=== PATIENT | female | born 1950 | race Caucasian/White ===

== ENCOUNTER → 2023-06-22 06:27 | Day surgery (SDC) | payer MEDICARE, OTHER, SELFPAY | LOC: GI 06:27 | PROVIDERS: ATTENDING PHYSICIAN Internal Medicine Gastroenterology | DX: Z12.11 Encounter for screening for malignant neoplasm of colon (principal); R19.5 Other fecal abnormalities; K64.0 First degree hemorrhoids; K55.20 Angiodysplasia of colon without hemorrhage; K63.89 Other specified diseases of intestine; D12.0 Benign neoplasm of cecum; D12.3 Benign neoplasm of transverse colon | CPT/HCPCS: 45385; 45380; 88305 ==

== ENCOUNTER → 2023-07-26 06:20 | Day surgery (SDC) | payer MEDICARE, OTHER, SELFPAY | LOC: GI 06:20 | PROVIDERS: ATTENDING PHYSICIAN Internal Medicine Gastroenterology; FAMILY PHYSICIAN Family Medicine | DX: R10.84 Generalized abdominal pain (principal); R14.0 Abdominal distension (gaseous); K22.2 Esophageal obstruction; K44.9 Diaphragmatic hernia without obstruction or gangrene; K31.7 Polyp of stomach and duodenum; R13.10 Dysphagia, unspecified; K29.50 Unspecified chronic gastritis without bleeding; K31.89 Other diseases of stomach and duodenum; K20.80 Other esophagitis without bleeding | CPT/HCPCS: 43239; 88305; 88312; 88342 ==

== ENCOUNTER → 2023-07-28 07:33 | Outpatient (REF) | payer MEDICARE, OTHER, SELFPAY | LOC: RAD 07:33 | PROVIDERS: ATTENDING PHYSICIAN Internal Medicine Gastroenterology; FAMILY PHYSICIAN Family Medicine | DX: K31.84 Gastroparesis (principal) | CPT/HCPCS: 78264; A9541 ==

== ENCOUNTER 2023-08-22 06:06 | Inpatient (IN) | payer MEDICARE, OTHER, SELFPAY ==
[2023-08-22] VITALS (9 sets, daily range): BP systolic 114–168; BP diastolic 63–113; PULSE 76; BMI 26.1; BMI 24.9
[2023-08-22] MEDS: ZOFRAN 4 MG IV (01:51)
--- NOTE | 2023-08-22 02:00 | EDRN ---
Patients daughter has come out of the room several times about the patients pain, myself and charge nurse have explained to the daughter several times that the doctor is in with a critical patient and we understand shes in a lot of pain and her pain
is important to us and the providers are working as quickly as they can to see her, ice applied and given Zofran for nausea per doctor Edson request and informed that the DrSolitario will be in as soon as she can and is aware of the patients pain level.
--- NOTE | 2023-08-22 02:17 | ED.GENMED ---
History of Present Illness
<ERIC Vicente - Last Filed: 08/22/23 03:22>
General
Chief Complaint: Musculo-Skeletal Complaint
Source: patient
Time Seen by Provider: 08/22/23 02:17
Travel History
Have you had any contact with someone who has COVID-19?: No
Do you have any symptoms of coronavirus? Fever > 100 degrees, chills, cough, shortness of breath, sore throat, loss of taste or smell, muscle aches, or headache?: No
History of Present Illness
History of Present Illness:
This is a 73 yo female PMH asthma, HTN, AFIB with pacemaker, HTN presenting for R knee pain x 1 day. She states she felt acute pain and a 'weird sensation' while bending down to pick something off the floor on tuesday. She states the pain is 10/10,
radiating up part of her thigh. She went to urgent care shortly after where she had a normal XRAY and was given tramadol and ibuprofen. States tramodol helped the pain briefly, but the pain and swelling has been getting worse over the day. She
denies any recent injury.
Past History
<ERIC Vicente - Last Filed: 08/22/23 03:22>
Past History
ED Past Medical History: Arrthythmia (afib) and Asthma
ED Past Surgical History: Cardiac (ablation)
Social History
Tobacco: Non-smoker
Alcohol: None
Drug: None
Personal:
Living: with family
Employment: Not employed
Review of Systems
<ERIC Vicente - Last Filed: 08/22/23 03:22>
Review of Systems
Allergies reviewed?: Yes
Constitutional: Reports no symptoms
Respiratory: Reports no symptoms
Cardiac: Reports no symptoms
Musculoskeletal: Reports joint pain and joint swelling
Skin: Reports no symptoms
Phy Exam
<ERIC Vicente - Last Filed: 08/22/23 03:22>
General Physical Exam
General Presentation: moderate distress
General age: appears stated age
General Mental: alert
Cardiovascular Exam
Cardiovascular Exam: regular rate/rhythm and normal peripheral pulses
Pulmonary Exam
Pulmonary Exam: lungs clear
Musculoskeletal Exam
Musculoskeletal Exam: joint swelling (R knee effusion) and other (pain with R leg flexion, R foot flexion/extension)
Course
<ERIC Vicente - Last Filed: 08/22/23 03:22>
Orders/Labs/Results
Orders:
Orders
08/22/23 01:10
Ondansetron Injectable [Zofran] 4 mg .ROUTE .STK-MED ONE
08/22/23 01:51
Ondansetron Injectable [Zofran] 4 mg IV NOW STA
08/22/23 02:52
HYDROmorphone [Dilaudid] 0.5 mg .ROUTE .STK-MED ONE
HYDROmorphone [Dilaudid] 0.5 mg IV NOW STA
08/22/23 03:00
Ondansetron Injectable [Zofran] 4 mg .ROUTE .STK-MED ONE
08/22/23 03:24
HYDROmorphone [Dilaudid] 0.5 mg IV NOW STA
08/22/23 04:32
Lidocaine [Lidocaine 4% Patch] 2 patch TOPICAL NOW STA
08/22/23 05:21
BMP [Basic Metabolic Panel] Urgent
CBC/With Diff [Complete Blood Count/With Diff] Urgent
08/22/23 05:22
PT/INR [Prothrombin Time] Urgent
PTT Urgent
Vital Signs
Initial and Last Documented VS:
Initial Vital Signs
Temp Pulse Resp BP Pulse Ox
98.0 F 78 16 141/86 99
08/22/23 00:53 08/22/23 00:53 08/22/23 00:53 08/22/23 00:53 08/22/23 00:53
Last Documented Vital Signs
Temp Pulse Resp BP Pulse Ox
98.0 F 78 16 141/86 99
08/22/23 00:53 08/22/23 00:53 08/22/23 00:53 08/22/23 00:53 08/22/23 00:53
<Gisel Gomez DO - Last Filed: 08/22/23 05:53>
Orders/Labs/Results
Orders:
Orders
08/22/23 01:10
Ondansetron Injectable [Zofran] 4 mg .ROUTE .STK-MED ONE
08/22/23 01:51
Ondansetron Injectable [Zofran] 4 mg IV NOW STA
08/22/23 02:52
HYDROmorphone [Dilaudid] 0.5 mg .ROUTE .STK-MED ONE
HYDROmorphone [Dilaudid] 0.5 mg IV NOW STA
08/22/23 03:00
Ondansetron Injectable [Zofran] 4 mg .ROUTE .STK-MED ONE
08/22/23 03:24
HYDROmorphone [Dilaudid] 0.5 mg IV NOW STA
08/22/23 04:32
Lidocaine [Lidocaine 4% Patch] 2 patch TOPICAL NOW STA
08/22/23 05:21
BMP [Basic Metabolic Panel] Urgent
CBC/With Diff [Complete Blood Count/With Diff] Urgent
08/22/23 05:22
PT/INR [Prothrombin Time] Urgent
PTT Urgent
Vital Signs
Initial and Last Documented VS:
Initial Vital Signs
Temp Pulse Resp BP Pulse Ox
98.0 F 78 16 141/86 99
08/22/23 00:53 08/22/23 00:53 08/22/23 00:53 08/22/23 00:53 08/22/23 00:53
Last Documented Vital Signs
Temp Pulse Resp BP Pulse Ox
98.0 F 78 16 141/86 99
08/22/23 00:53 08/22/23 00:53 08/22/23 00:53 08/22/23 00:53 08/22/23 00:53
<ERIC Vicente - Last Filed: 08/22/23 03:22>
MDM/Problems Addressed
Differential Diagnosis Includes:
Traumatic knee injury
-ice, dilaudid
-patient instructed to f/u with orthopedics
<ERIC Vicente - Last Filed: 08/22/23 03:22>
*Critical Care Note
Total Time (30-74mins, 75-104mins- exclusive of procedures): Not Applicable
<Gisel Gomez DO - Last Filed: 08/22/23 05:53>
*Radiology
Radiology exam reviewed: radiology read reviewed (Knee x-ray from August 19-performed at urgent care. Unremarkable save for prepatellar effusion)
*Pulse Oximetry
Patient hypoxic: no
ED Attending Note
<ERIC Vicente - Last Filed: 08/22/23 03:22>
-
Portions of this chart may have been created with voice recognition software.� Occasional wrong word or��sound alike� substitutions may have occurred due to the inherent limitations of voice recognition software.
<Gisel Gomez DO - Last Filed: 08/22/23 05:53>
ED Attending Note
Patient seen and examined by attending physician: Yes
I performed the substantive portion of visit, reviewed & personally made and approve the management plan that is documented in note by myself or TOBI.: Yes
I performed a history and physical exam of patient and discussed management with resident, I reviewed resident's note and agree with documented findings and plan of care.: Yes
ED Attending Note:
73-year-old woman with history of paroxysmal atrial fibrillation maintained on Eliquis, history of hypertension, hyperlipidemia, anxiety, hiatal hernia, chronic constipation who presents with abrupt onset of right knee pain after bending over
Tuesday morning, August 19. She complained of immediate mild to moderate pain with mild stiffness and presented to urgent care Tuesday afternoon and had right knee x-ray showing moderate suprapatellar joint effusion but otherwise unremarkable.
She was provided a prescription for tramadol for pain and has been taking ibuprofen 600 mg intermittently with last dose at 9:30 PM.
She presents with progressive pain and swelling about her right knee, now severe, unrelieved with tramadol as well as ibuprofen. She has been unable to bear weight and complains of nausea, dry heaves which she believes is related to the knee pain.
No prior history of knee injuries. The pain has been radiating up her thigh and intermittently down her right lower leg. She denies weakness nor numbness.
GENERAL: 73-year-old woman appears her stated age, awake and alert, appears in mild to moderate distress related to right knee pain. Daughter is accompanying.
EYE: anicteric
NECK: Supple, nontender, no meningismus, no significant adenopathy.
ENT: oral mucosa is moist. No rhinorrhea.
CARDIAC: Regular rate and rhythm. no murmur.
LUNGS: Clear breath sounds bilaterally, no acute respiratory distress, no wheezes/rales/rhonchi
ABDOMEN: Soft, nondistended, without focal tenderness
NEUROLOGICAL: Alert and oriented x3, no focal neuro deficits. Motor strength is 5/5 bilaterally. Gross sensation is intact.
SKIN: Warm and dry, normal color, skin intact. No rash.
MUSCULOSKELETAL: There is exquisite tenderness about the right knee with marked global effusion about the right knee. Right knee is held preferentially slightly flexed elevated on a pillow. Markedly limited range of motion of right knee related to
pain. There is no crepitus, no gross deformity. There is no tenderness nor soft tissue swelling to the thigh nor lower leg. Peripheral pulses are full and equal bilaterally. There is full ankle range of motion without difficulty nor pain.
PSYCH: Mildly anxious related to pain.
History and exam concerning for acute internal derangement of right knee with acute traumatic effusion with significant right knee pain. There is no evidence of compartment syndrome nor neurovascular compromise.
Patient chronically maintained on Eliquis thus NSAIDs are to be avoided.
She has been given IV Zofran for nausea and will trial IV Dilaudid for pain along with continuing ice.
Imaging from yesterday reviewed showing moderate suprapatellar effusion otherwise unremarkable.
08/22/2023 0433 AM
After a total of 1 mg of IV Dilaudid and additional IV Zofran as well as topical ice patient is much more comfortable, resting comfortably with moderate improvement in knee pain and no further nausea.
She is now normotensive.
Will trial lidocaine patches today, continue ice and continue to observe.
08/22/2023 0515 AM
Patient is much more comfortable but continues with severe pain right knee with any attempted movement.
At this point it does not appear the patient will be able to safely be discharged to home due to ongoing significant, severe pain requiring narcotic pain medication.
She is chronically maintained on Eliquis, I fear that with addition of narcotic pain medication as well as acute right knee pain she is unstable on her feet and is at significant risk for fall, significant risk for further injury.
Will plan to admit to hospitalist service for continued pain control and plan for orthopedic evaluation. Consider physical therapy evaluation as well.
Discharge Plan
Departure
Patient Disposition: Admit
Date of Disposition: 08/22/23
Time of Disposition: 05:14
Admit to: Med/Surg
Admit to doctor: Franco
Presentation/result/management discussed w/ accepting MD/DO: Hospitalist
Condition: Fair
Discharge Problem:
acute R knee pain w concern for ID, Acute intractable right knee pain, acute traumatic effusion R knee, PAF (paroxysmal atrial fibrillation)
Prescriptions:
No Action
acetaminophen 500 MG tablet
500 mg PO Q4HPRN PRN (Reason: pain) Qty: 0 0RF
magnesium hydroxide 30 ML suspension
15 ml PO QIDPRN PRN (Reason: CONSTIPATION)
amlodipine [Norvasc] 5 MG tablet
5 mg PO DAILY Qty: 90 3RF
pantoprazole 40 MG tablet,delayed release (DR/EC)
40 mg PO DAILY Qty: 90 3RF
Eliquis 5 MG tablet
5 mg PO BID Qty: 180 3RF
Rx Instructions:
OK to resume tonight 09/22 at usual time
tramadol 50 mg Tablet
50 mg PO Q6H PRN (Reason: pain)
Referrals:
Sagar Stokes DO [Family Provider] -
Interventions
Interventions:
*Risk Screen - Suicide Last Done: 08/22/23 00:53
*General Assessment Last Done: 08/22/23 00:53
*Neglect/Abuse Screening Last Done: 08/22/23 00:53
ED- Fall Risk Assessment Last Done: 08/22/23 01:30
*ED COVID-19 Vaccine History Last Done: 08/22/23 00:53
ED-Musculoskeletal Assessment Last Done: 08/22/23 01:30
Discharge Date and Time
Print Language: FRISIAN
[2023-08-22] MEDS: DILAUDID 0.5 MG IV ×2 (02:53→03:24)
--- NOTE | 2023-08-22 03:26 | EDRN ---
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 Gomez aware meds ordered to be given.
--- NOTE | 2023-08-22 03:54 | EDRN ---
patient provided with more ice for knee
[2023-08-22] MEDS: LIDOCAINE 4% PATCH 2 PATCH TOPICAL (04:48)
--- NOTE | 2023-08-22 05:00 | EDRN ---
Patient incontinent to urine, changed linen, patient did not tolerate rolling side to side very well, daughter had to hold her knee to rotate and informed dr. Gomez, patient to be admitted
--- NOTE | 2023-08-22 05:54 | HPS.HSE ---
Family Physician
-
Family Physician: Sagar Stokes
Chief Complaint
-
R Knee Pain and Swelling
History of Present Illness
Patient is a 73y F with PMH significant for A-Fib on Eliquis, hypertension and GERD who presents to ED complaining of right knee pain and swelling. Patient states that she first noted the pain on Tuesday. She squatted / bent down to pick
something up from the floor. When she stood straight she felt a discomfort in her R knee. This seemed to get somewhat worse through the day and she presented to Urgent Care for evaluation. X-rays were done at the time and she was prescribed
tramadol and advised to follow-up with Orthopedic Surgery. Upon walking out of the exam room, patient noted that her pain was worse. She had difficulty walking and had to call her daughter to pick her up from the Urgent Care.
She has been resting, applying ice and keeping the leg elevated since that time. She was doing well for much of the day on Tuesday; however, this evening her pain became suddenly and significantly worse. She noted obvious swelling of the distal
thigh, knee and into the lower leg. Patient presented to the ED for further evaluation.
Patient denies any additional injury / trauma. She can recall no recent twisting or wrenching movement or injury.
Patient denies any prior history of similar symptoms. No history of orthopedic issues.
Patient does take Eliquis for stroke risk reduction due to A-Fib.
Medical History
Past Medical History
Past Medical History: Reports Other
Additional Past Medical History:
Paroxysmal Atrial Fibrillation
Sick Sinus Syndrome
Hypertension
GERD
Autoimmune Hemolytic Anemia (single episode)
DJD / DDD
Past Surgical History: Reports Other
Additional Past Surgical History:
PPM Placement
Appendectomy
BHARATI
Cardiac Ablation
Social History
Tobacco: Non-smoker
Alcohol: Occasional
Drug: None
Personal:
Family History
Family History: Other (Father: CAD)
Allergies / Home Medications
Allergies reflects when Allergies were last updated in [facility].
Home Medications with original date entered in [facility]
Allergy/Medication List:
Allergies
Allergy/AdvReac Type Severity Reaction Status Date / Time
Penicillins Allergy Rash, Verified 08/22/23 00:58
tolerates
ceftriaxone,
keflex
08/2021
admission
Home Medications
acetaminophen 500 mg tablet 500 mg PO Q4HPRN PRN pain ##0 09/10/21
amlodipine 5 mg tablet (Norvasc) 5 mg PO DAILY Blood pressure #90 tabs 09/22/21
apixaban 5 mg tablet (Eliquis) 5 mg PO BID #180 tabs 09/22/21
magnesium hydroxide 400 mg/5 mL oral suspension 15 ml PO QIDPRN PRN CONSTIPATION 09/22/21
pantoprazole 40 mg tablet,delayed release 40 mg PO DAILY #90 tabs 09/22/21
tramadol 50 mg tablet 50 mg PO Q6H PRN pain 08/22/23
Review of Systems
-
History Source: Patient and Family
A 12 point ROS was completed and negative except as noted: Yes
Constitutional: Denies Fever or Chills
Respiratory: Denies Cough or Trouble Breathing
Cardiac: Denies Chest Pain or Palpitations
Abdomen/GI: Reports Nausea; Denies Abdominal Pain, Vomiting or Diarrhea
: Denies Dysuria or Frequency
Musculoskeletal: Reports Joint Pain, Joint Swelling and Edema
Neurological: Reports Dizzy; Denies Headache
Psych: Denies Depression or Anxiety
Physical Exam
Vital Signs
Vital Signs
Temp Pulse Resp BP Pulse Ox
98.0 F 78 16 141/86 99
08/22/23 00:53 08/22/23 00:53 08/22/23 00:53 08/22/23 00:53 08/22/23 00:53
Physical Exam
General: Other (73y F in mild distress due to R knee pain.)
HEENT: Moist mucous membranes and PERRLA
Respiratory: Clear; No Wheezes, Rales or Rhonchi
Cardiac: S1/S2 and Regular Rhythm; No Murmur
GI: Soft, Non Tender, Non Distended and Normal Bowel Sounds
Musculoskeletal: No Clubbing, No Cyanosis and Other (Edema about the R knee. Suprapatellar effusion on exam with local tenderness. No ecchymosis / erythema / etc.)
Neuro: AO x 3
Impression/Plan
-
A/P: Patient is a 73y F with PMH significant for HTN, A-Fib and GERD who presents to ED complaining of R knee pain and swelling x 2 days.
Right Knee Effusion
Right Knee Pain secondary to the above
- Admit for further evaluation and treatment.
- Patient with significant pain and unable to ambulate in the ED despite pain medications.
- ? hemarthrosis given Eliquis use and apparent lack of injury / trauma.
- Continue supportive care with cold application, elevation, pain control.
- Ortho evaluation for additional work - up / recommendations.
- Will hold Eliquis acutely.
Paroxysmal Atrial Fibrillation
- Stable. Currently in sinus rhythm.
- Not on any rate control medications. PPM in place.
- Hold Eliquis for now as noted above.
GERD
- Stable. Continue daily PPI.
History of Autoimmune Hemolytic Anemia
- Isolated episode / on no chronic therapy. No recent issues.
- Follow-up lab results.
Benign Hypertension
- Stable. Continue amlodipine. Continue efforts at pain control.
DVT Prophylaxis: None at present given LE pain / swelling and holding meds due to possible bleeding.
Code Status: Full
[2023-08-22 06:26] LABS: % Basophils 0.2 % (0-2); % Immature Granulocytes 0.4 % (0-0.5); % Lymphocytes 5.8 % (20.5-51.1); % Monocytes 3.5 % (1.7-9.3); % Neutrophils 90.1 % (42.2-75.2); Absolute Lymphocytes 0.5 10^3/uL (1.2-3.4); Absolute Monocytes 0.3 10^3/uL (0.1-0.6); Absolute Neutrophils 7.5 10^3/uL (1.4-6.5); Hematocrit 38.1 % (37.0-47.0); Hemoglobin 12.8 g/dL (12.0-16.0); Mean Corp Hgb Conc. 33.6 g/dL (33.0-37.0); Mean Corpuscular Hgb 30.8 pg (27.0-31.0); Mean Corpuscular Volume 91.6 fL (81.0-99.0); Mean Platelet Volume 10.2 fL (7.4-10.4); Nucleated Red Blood Cells % 0 %; Platelet Count 218 10^3/uL (130-400); Red Blood Cell Count 4.16 10^6/uL (4.20-5.40); Red Cell Dist. Width 13.1 % (11.5-14.5); White Blood Cell Count 8.3 10^3/uL (4.8-10.8)
[2023-08-22 06:34] LABS: INR 1.16; PT 14.6 Sec (11.4-14.6)
[2023-08-22 06:35] LABS: APTT 35.2 Sec (23.4-35.0)
[2023-08-22 07:01] LABS: Blood Urea Nitrogen 12 mg/dl (7-17); Calcium 9.8 mg/dl (8.4-10.2); Carbon Dioxide 26 mmol/L (22-30); Chloride 101 mmol/L (98-107); Estimated Creatinine Clearance 63 ml/min; Glucose 137 mg/dl (70-99); Potassium 4.5 mmol/L (3.5-5.1); Sodium 132 mmol/L (135-145); eGFR > 60.00
--- NOTE | 2023-08-22 08:00 | W.PN.HOSP.TC ---
Today's Communication/Plan
-
Knee symptoms improved
PT/OT today, patient stated she would like to work with PT today and discharge tomorrow
AM labs/Hgb
Assessment / Plan
Assessment / Plan
Physical Exam
General: Not in acute distress
HEENT: Moist mucous membranes
Respiratory: Clear to Auscultation Bilaterally
Cardiac: S1/S2 and Regular Rhythm
GI: Soft, Non Tender, Non Distended and Normal Bowel Sounds
Musculoskeletal: No Cyanosis and Other (Right knee wrapped in NOAH compression wrap with mild tenderness on palpation)
Neuro: AAO x 3

Assessment/Plan
Patient is a 73 y/o female with past medical history significant for HTN, A-Fib and GERD who presented to the ED complaining of right knee pain and swelling x 2 days.
Right Knee Effusion/Right Knee Hemarthrosis
Right Knee Pain secondary to the above
- Improved
- ? hemarthrosis given Eliquis use and apparent lack of injury / trauma.
- Continue supportive care with cold application, elevation, pain control.
- Ortho evaluation for additional work - up / recommendations: approximately 10 cc blood aspirated from knee on August 22, 2023 morning
- Okay to resume Eliquis as per Dr. Guardado (orthopedics) -- continue Eliquis
- Dr. Guardado (orthopedics) can see patient in the office in the next week or two and can consider a steroid injection if things haven�t calmed down with regards to patient's
knee
- CT findings noted
Paroxysmal Atrial Fibrillation
- Stable. Currently in sinus rhythm.
- Not on any rate control medications. PPM in place.
- Continue Eliquis
GERD
- Stable. Continue daily PPI.
History of Autoimmune Hemolytic Anemia
- Isolated episode / on no chronic therapy. No recent issues.
- Follow-up lab results.
Benign Hypertension
- Stable. Continue amlodipine. Continue efforts at pain control.
DVT Prophylaxis: Eliquis
Code Status: Full
Anticipated Discharge: Within 24 hours
Subjective/Interval History
-
Date of Service: August 22, 2023
Patient was seen and examined. She reported that her right knee pain and swelling have improved.
Objective Data
-
Labs:
Laboratory Results
08/22/23
06:17
WBC 8.3
Hgb 12.8
Hct 38.1
Plt Count 218
PT 14.6
INR 1.16
APTT 35.2 H
Sodium 132 L
Potassium 4.5
Chloride 101
Carbon Dioxide 26
BUN 12
Creatinine 0.7
Glucose 137 H
Calcium 9.8
Vital Signs:
Vital Signs
Temp Pulse Resp BP Pulse Ox
98.0 F 78 16 128/75 96
08/22/23 00:53 08/22/23 00:53 08/22/23 00:53 08/22/23 04:00 08/22/23 04:45
[2023-08-22] MEDS: TYLENOL 1000 MG PO ×3 (08:11→21:11)
[2023-08-22] MEDS: NORVASC 5 MG PO (08:11)
[2023-08-22] MEDS: PROTONIX 40 MG PO (08:11)
--- NOTE | 2023-08-22 08:17 | W.PN.UPDATE ---
Update Note
Progress Note Update
Patient seen and examine this morning, chart reviewed.
Approx 10 cc blood aspirated from knee
73 yo F on eliquis with right knee hemarthrosis
CT scan to rule out occult fracture
Formal consult note to follow
[2023-08-22 08:34] LABS: Erythrocyte Sed Rate 19 mm/hour (0-20)
[2023-08-22 09:01] LABS: Creatine Phosphokinase 72 U/L (30-135)
[2023-08-22] MEDS: ELIQUIS 5 MG PO ×2 (12:25→19:08)
[2023-08-22] MEDS: MIRALAX 17 GRAMS PO (20:10)
[2023-08-23 06:26] LABS: Hematocrit 36.6 % (37.0-47.0); Hemoglobin 12.1 g/dL (12.0-16.0); Mean Corp Hgb Conc. 33.1 g/dL (33.0-37.0); Mean Corpuscular Hgb 30.9 pg (27.0-31.0); Mean Corpuscular Volume 93.6 fL (81.0-99.0); Mean Platelet Volume 10.8 fL (7.4-10.4); Platelet Count 217 10^3/uL (130-400); Red Blood Cell Count 3.91 10^6/uL (4.20-5.40); Red Cell Dist. Width 13.1 % (11.5-14.5); White Blood Cell Count 5.4 10^3/uL (4.8-10.8)
[2023-08-23 06:54] LABS: Blood Urea Nitrogen 19 mg/dl (7-17); Calcium 9.5 mg/dl (8.4-10.2); Carbon Dioxide 28 mmol/L (22-30); Chloride 103 mmol/L (98-107); Estimated Creatinine Clearance 55 ml/min; Glucose 112 mg/dl (70-99); Potassium 4.8 mmol/L (3.5-5.1); Sodium 134 mmol/L (135-145); eGFR > 60.00
[2023-08-23 07:00] VITALS: BP 124/75; BP 133/73
[2023-08-23] MEDS: TYLENOL 1000 MG PO ×3 (08:14→20:47)
[2023-08-23] MEDS: NORVASC 5 MG PO (08:14)
[2023-08-23] MEDS: ELIQUIS 5 MG PO ×2 (08:14→20:47)
[2023-08-23] MEDS: PROTONIX 40 MG PO (08:14)
[2023-08-23] MEDS: DULCOLAX 10 MG RECTAL (09:55)
--- NOTE | 2023-08-23 11:14 | CON.ONC ---
Impression
Impression
afib on Eliquis
hemarthrosis
h/o AIHA
carrier for hemochromatosis
Plan
Plan
No findings to suggest an underlying bleeding disorder. Hemarthrosis secondary to Eliquis, likely with microtrauma to the knee.
Continue supportive care, f/u with ortho
No evidence for recurrent AIHA
Hemochromatosis carrier, no treatment needed for elevated ferritin, other than to avoid iron supplements
Will sign off.
Patient History
History of Present Illness
73 yo F w/ afib, on Eliquis, presented to ER with knee pain. She reports squatting down on Tuesday to pick something up, and noted pain in the right knee upon standing which progressed and with swelling. She was evaluated at Urgent Care and rec. to
f/u with ortho outpatient, but presented to ER with worsening pain. Work-up noted for hemarthrosis. CT showed no fracture, and small effusion consistent with hemarthrosis. 10cc blood was aspirated by orthopedics. Conservative mgmt was recommended,
okay to continue Eliquis per ortho.
CBC noted for normal platelet count of 217, hgb is 12.1. Coags noted for slight PTT prolongation, consistent with Eliquis usage.
She has history of AIHA in 2009. She is a carrier for hemochromatosis.
She's never had any issues with bleeding or easy bruising, no complications from surgery. No heavy menses.
Past-Medical/Surgical History
Past Medical History
Past Medical History:
Paroxysmal Atrial Fibrillation
Sick Sinus Syndrome
Hypertension
GERD
Autoimmune Hemolytic Anemia (single episode in 2009)
DJD / DDD
carrier for hemochromatosis
Past Surgical History: Reports Other
Additional Past Surgical History:
PPM Placement
Appendectomy
BHARATI
Cardiac Ablation
Social History
Tobacco: Non-smoker
Alcohol: Occasional
Drug: None
Personal:
Family History
Family History: Other (Father: CAD)
Patient Medication
�Medication �Instructions �Recorded �Confirmed �Last Taken �Type
acetaminophen 500 mg tablet 500 mg PO Q4HPRN PRN pain ##0 09/10/21 08/22/23 Unknown Rx
amlodipine 5 mg tablet (Norvasc) 5 mg PO DAILY Blood pressure #90 09/22/21 08/22/23 Unknown Rx
tabs
apixaban 5 mg tablet (Eliquis) 5 mg PO BID #180 tabs 09/22/21 08/22/23 Unknown Rx
magnesium hydroxide 400 mg/5 mL 15 ml PO QIDPRN PRN CONSTIPATION 09/22/21 08/22/23 Unknown History
oral suspension
pantoprazole 40 mg tablet,delayed 40 mg PO DAILY #90 tabs 09/22/21 08/22/23 Unknown Rx
release
tramadol 50 mg tablet 50 mg PO Q6H PRN pain 08/22/23 08/22/23 Unknown History
Active Medications
Generic Name Dose Route Start Last Admin
Trade Name Freq PRN Reason Stop Dose Admin
Acetaminophen 1,000 mg 08/22/23 08:00 08/23/23 08:14
Acetaminophen 500 Mg Tablet PO 09/19/23 07:59 1,000 mg
TID DIPESH Administration
Amlodipine Besylate 5 mg 08/22/23 08:00 08/23/23 08:14
Amlodipine 5 Mg Tablet PO 09/19/23 07:59 5 mg
DAILY DIPESH Administration
Apixaban 5 mg 08/22/23 11:30 08/23/23 08:14
Apixaban (Eliquis) 5 Mg Tablet PO 09/19/23 11:29 5 mg
BID DIPESH Administration
Bisacodyl 10 mg 08/23/23 09:19 08/23/23 09:55
Bisacodyl 10 Mg Rectal Suppository RECTAL 09/20/23 09:18 10 mg
DAILYPRN PRN Administration
constipation
Morphine Sulfate 1 mg 08/22/23 07:22
Morphine 2 Mg/Ml Syringe IV 09/05/23 07:21
Q4HPRN PRN
severe pain
Oxycodone HCl 5 mg 08/22/23 07:22
Oxycodone 5 Mg Regular Release Tablet PO 09/05/23 07:21
Q4HPRN PRN
moderate pain
Pantoprazole Sodium 40 mg 08/22/23 08:00 08/23/23 08:14
Pantoprazole 40 Mg Delayed Release Tablet PO 09/19/23 07:59 40 mg
DAILY DIPESH Administration
Polyethylene Glycol 17 grams 08/22/23 19:34 08/22/23 20:10
Polyethylene Glycol Powder 17 Grams Packet PO 09/19/23 19:33 17 grams
DAILYPRN PRN Administration
constipation
Prochlorperazine Edisylate 5 mg 08/22/23 07:22
Prochlorperazine 10 Mg/2 Ml Vial IV 09/19/23 07:21
Q6HPRN PRN
Nausea
Sodium Chloride 0 flush 08/22/23 20:00
Sodium Chloride 0.9% (Flush) Syringe IV 09/19/23 19:59
PER PROTOCOL DIPESH
Review of Systems
-
All Other Systems: Not reviewed unless documented
Physical Exam
-
General: Well Developed, Well Nourished, No Apparent Distress and Conversant
HEENT: Negative Jaundice
Musculoskeletal: No Edema and Other (right knee wrapped)
Extremities: No C/C/E
Neurology: Non Focal, No Lateralizing Symptoms and No Word Finding Difficulty
Skin: Warm and Dry
Psych: Intact Judgement/Insight
Labs
Lab Results
WBC 5.4 10^3/uL (4.8-10.8) 08/23/23 05:53
RBC 3.91 10^6/uL (4.20-5.40) L 08/23/23 05:53
Hgb 12.1 g/dL (12.0-16.0) 08/23/23 05:53
Hct 36.6 % (37.0-47.0) L 08/23/23 05:53
MCV 93.6 fL (81.0-99.0) 08/23/23 05:53
MCH 30.9 pg (27.0-31.0) 08/23/23 05:53
MCHC 33.1 g/dL (33.0-37.0) 08/23/23 05:53
RDW 13.1 % (11.5-14.5) 08/23/23 05:53
Plt Count 217 10^3/uL (130-400) 08/23/23 05:53
MPV 10.8 fL (7.4-10.4) H 08/23/23 05:53
Abs Immat Gran (auto) 0.0 10^3/uL (0-0.05) 08/22/23 06:17
Absolute Neuts (auto) 7.5 10^3/uL (1.4-6.5) H 08/22/23 06:17
Absolute Lymphs (auto) 0.5 10^3/uL (1.2-3.4) L 08/22/23 06:17
Absolute Monos (auto) 0.3 10^3/uL (0.1-0.6) 08/22/23 06:17
Absolute Eos (auto) 0.0 10^3/uL (0-0.7) 08/22/23 06:17
Absolute Basos (auto) 0.0 10^3/uL (0-0.2) 08/22/23 06:17
Immature Gran % 0.4 % (0-0.5) 08/22/23 06:17
Neutrophils % 90.1 % (42.2-75.2) H 08/22/23 06:17
Lymphocytes % 5.8 % (20.5-51.1) L 08/22/23 06:17
Monocytes % 3.5 % (1.7-9.3) 08/22/23 06:17
Eosinophils % 0.0 % (0-6) 08/22/23 06:17
Basophils % 0.2 % (0-2) 08/22/23 06:17
Creatinine 0.8 mg/dL (0.6-1.0) 08/23/23 05:53
Vital Signs
Vital Signs
Temp Pulse Resp BP Pulse Ox
98.5 F 63 16 133/73 98
08/23/23 07:00 08/23/23 07:00 08/23/23 07:00 08/23/23 08:14 08/23/23 07:00
--- NOTE | 2023-08-23 13:04 | PN.CDI ---
CDI
- -
CDI:
Physician Documentation Request
Admit Date: 08/22/23 06:06
Dear Doctor Dottie,
Clinical Indicators:
Patient admitted with right knee effusion/hemarthrosis.
08/21 Pain scale ratings: 7-10
Sodium levels:
08/22/23 08/23/23
06:17 05:53
Sodium 132 L 134 L
Based on the above, could you clarify in the progress notes, the appropriate diagnosis, if significant, that supports the above abnormalities and additional evaluation, monitoring and/or treatment rendered:
Hyponatremia
Abnormal lab values clinically insignificant
Other, please specify
Use of terms such as suspected, likely, concern for, or probable (associated with a specific diagnosis that is being evaluated, monitored, or treated as if it exists) are acceptable and can be coded in the inpatient setting, when documented at the
time of discharge.
Thank you,
RUPINDER Wood RN
CDI Specialist
available via tiger text
Please use your independent medical judgment in providing your response.
--- NOTE | 2023-08-23 13:13 | CON.ORTHO ---
Consultation
-
Date/Time Consultation Requested: 6 AM 08/22/2023
Date/Time Consultation Performed: 730 AM 11/21/2023
Requesting Provider: Primary
Performing Provider: Geo
Reason for Consultation: Right knee swelling
Consultation - Orthopedics
History
HPI: 73-year-old female history of A-fib on Eliquis presented to the [facility] emergency department with complaints of right knee pain and swelling. [facility] orthopedics was consulted.
She noted pain over the weekend when she bent down to pick something up and felt some discomfort right knee. She denies experiencing acute pain but it progressively worsened throughout the day. She subsequently presented to an urgent care where
radiographs were reportedly negative. She had continued pain and this prompted her to present to the emergency department. She is companied by her daughter. She notes diffuse pain and swelling right knee. She notes difficulty bearing weight.
She denies any previous knee dysfunction. She does note that her recently and she does have plans to attend his burial at [facility] in early August.
Allergies / Home Medications
Past medical history: A-fib, sick sinus syndrome, hypertension, GERD, autoimmune hemolytic anemia
Past surgical history: Pacemaker, , appendectomy, BHARATI, cardiac ablation
Family history: , lives at home
Family history: Nonpertinent
Allergy/AdvReac Type Severity Reaction Status Date / Time
Penicillins Allergy Rash, Verified 08/22/23 00:58
tolerates
ceftriaxone,
keflex
08/2021
admission
�Medication �Instructions �Recorded
acetaminophen 500 mg tablet 500 mg PO Q4HPRN PRN pain ##0 09/10/21
amlodipine 5 mg tablet (Norvasc) 5 mg PO DAILY Blood pressure #90 09/22/21
tabs
apixaban 5 mg tablet (Eliquis) 5 mg PO BID #180 tabs 09/22/21
magnesium hydroxide 400 mg/5 mL 15 ml PO QIDPRN PRN CONSTIPATION 09/22/21
oral suspension
pantoprazole 40 mg tablet,delayed 40 mg PO DAILY #90 tabs 09/22/21
release
tramadol 50 mg tablet 50 mg PO Q6H PRN pain 08/22/23
Vital Signs / Lab Results
Temp Pulse Resp BP Pulse Ox
98.5 F 63 16 133/73 98
08/23/23 07:00 08/23/23 07:00 08/23/23 07:00 08/23/23 08:14 08/23/23 07:00
08/23/23 05:53
08/23/23 05:53
10 point review systems reviewed and negative unless otherwise stated
General: In no acute distress at rest, visibly pain with witnessed ambulation
Musculoskeletal right lower extremity
Skin intact, no erythema, no ecchymosis no palpable knee effusion
Limited range of motion secondary to pain
Diffuse tenderness palpation about soft tissues right knee
There is some moderate send palpation medial joint line
No significant dislocation lateral joint line
Distal motor and sensation baseline
Diagnostic studies
X-rays right knee independently viewed by myself shows no fracture dislocations. Relatively well-preserved joint space although these are nonweightbearing views
Procedure: Right knee aspiration
Risks and benefits of procedure discussed at length with patient verbal consent was obtained. Utilizing lateral suprapatellar approach, skin was marked with alcohol. 18-gauge needle was then introduced into the suprapatellar pouch approximate 10
cc of blood was aspirated. Radha was applied and is bandage was wrapped about the knee. Patient tolerated the procedure well.
Assessment / Plan
73-year-old female history of A-fib, pacemaker, Eliquis with right knee hemarthrosis. Had a long discussion with both the patient as well as daughter regarding potential causes of hemarthrosis. Discussed possibility of spontaneous hemarthrosis
secondary to her anticoagulation. Also discussed traumatic causes such as injuries to the ligaments cartilage or fracture. I think would be reasonable to obtain a CT scan of the right knee to rule out occult fracture as this would potentially
change her weightbearing status. I did have an extensive conversation with them regarding the possibility of spontaneous hemarthrosis and sometimes when patients are anticoagulated they can experience bleeding into joints with very trivial if any
trauma. They voiced understanding to this. Will plan to follow-up CT scan to rule out fracture. If negative, would recommend continued weightbearing to patient's tolerance in the right lower extremity and progressive mobilization with physical
therapy in addition to pain control. Please reach out any questions or concerns
--- NOTE | 2023-08-23 13:21 | W.PN.ORTHO ---
Today's Communication / Plan
-
73-year-old female history of A-fib on Eliquis with right knee hemarthrosis relatively atraumatically. Again had a long discussion the patient as well as daughter via telephone regarding potential diagnoses. No specific questions regarding the
cause of her hemarthrosis. I explained to the frankly that I am not sure that we will get a definitive answer as to why this occurred. I did discuss previously with the primary service obtaining advanced imaging. I am not sure that an MRI would
really change my treatments recommendations but certainly this could be performed to further investigate any potential internal derangement of the right knee that may have caused hemarthrosis. Could also be potential vascular sources for bleeding.
Again I did explain to them in detail that despite further workup, there may be no discernible cause for the hemarthrosis. They voiced understanding to this. I would recommend continued mobilization with physical therapy and pain control.
Certainly patient can follow-up on an outpatient basis with myself after discharge. Please reach out any questions or concerns.
Subjective
.
.:
Patient resting comfortably this afternoon. She does report some mild improvement in right knee pain. She did mobilize yesterday with physical therapy. She does have specific questions regarding further workup of her hemarthrosis.
Vital Signs and Labs
.
Vital Signs and Labs:
Lab Results
08/23/23 05:53
08/23/23 05:53
Temp Pulse Resp BP Pulse Ox
98.5 F 63 16 133/73 98
08/23/23 07:00 08/23/23 07:00 08/23/23 07:00 08/23/23 08:14 08/23/23 07:00
PT 14.6 Sec (11.4-14.6) 08/22/23 06:17
INR 1.16 08/22/23 06:17
Physical Exam
-
Musculoskeletal right lower extremity
Skin intact, erythema, no ecchymosis
There is palpable knee effusion with some swelling suprapatellar region
Again limited range of motion secondary to pain
There is symptoms palpation medial joint line, no significant tenderness palpation lateral joint line
Despite station baseline
--- NOTE | 2023-08-23 16:01 | W.PN.HOSP.TC ---
Today's Communication/Plan
-
CT (to check for extravasation of blood) and MRI to check for any derangement(s) of the right knee
Extensive discussions with orthopedics, vascular surgery, patient and patient's daughter today
Please see below
Assessment / Plan
Assessment / Plan
Physical Exam
General: Not in acute distress
HEENT: Moist mucous membranes
Respiratory: Clear to Auscultation Bilaterally
Cardiac: S1/S2 and Regular Rhythm
GI: Soft, Non Tender, Non Distended and Normal Bowel Sounds
Musculoskeletal: No Cyanosis and Other (Right knee wrapped in NOAH compression wrap with mild tenderness to medial joint line on palpation - IMPROVED SIGNS/SYMPTOMS PER PATIENT -- but still with restricted right knee flexion)
Neuro: AAO x 3

Assessment/Plan
Patient is a 73 y/o female with past medical history significant for HTN, A-Fib and GERD who presented to the ED complaining of right knee pain and swelling x 2 days.
Right Knee Effusion/Right Knee Hemarthrosis
Right Knee Pain secondary to the above
History of Autoimmune Hemolytic Anemia (AIHA)
Carrier for hemochromatosis
- Improved
- Continue supportive care with cold application, elevation, pain control.
- Ortho evaluation for additional work - up / recommendations: approximately 10 cc blood aspirated from knee on August 22, 2023 morning
- Okay to resume Eliquis as per Dr. Guardado (orthopedics) -- continue Eliquis
- Dr. Guardado (orthopedics) can see patient in the office in the next week or two and can consider a steroid injection if things haven�t calmed down with regards to patient's
knee
- CT findings noted with no fracture
- Check CTA runoff to check for any extravasation of blood - I discussed with vascular surgery senior qa automation engineer, if the CTA is negative, there's nothing much for vascular surgery to add
- vascular can look at CTA when complete
- MRI of the right knee without contrast ordered -- but this may not manager change as per orthopedics
- Discussed on 08/23/23 above extensively with orthopedics and vascular surgery
- Hematology consulted given patient's history of AIHA, given carrier state of hemochromatosis, avoid iron supplements
Paroxysmal Atrial Fibrillation
- Stable. Currently in sinus rhythm.
- Not on any rate control medications. PPM in place.
- Continue Eliquis
Hyponatremia
- Possibly from pain
- Check hyponatremia studies: urine osm, urine sodium and serum osm
- Monitor BMP
GERD
- Stable. Continue daily PPI.
History of Autoimmune Hemolytic Anemia
- Isolated episode / on no chronic therapy. No recent issues.
Benign Hypertension
- Stable. Continue amlodipine. Continue efforts at pain control.
DVT Prophylaxis: Eliquis
Code Status: Full
On August 23, 2023, I spoke extensively with patient and over the phone with patient's daughter.
Total time spent today on caring for the patient, including chart review, review of and placing of orders, seeing and examining the patient, discussion with patient and her daughter, speaking with orthopedics and vascular surgeon, and on
documentation, was 75 minutes.
Anticipated Discharge: Within 24 hours
Subjective/Interval History
-
Date of Service: August 23, 2023
Objective Data
-
Labs:
Laboratory Results
08/23/23
05:53
WBC 5.4
Hgb 12.1
Hct 36.6 L
Plt Count 217
Sodium 134 L
Potassium 4.8
Chloride 103
Carbon Dioxide 28
BUN 19 H
Creatinine 0.8
Glucose 112 H
Calcium 9.5
Vital Signs:
Vital Signs
Temp Pulse Resp BP Pulse Ox
99.0 F 80 16 133/73 99
08/23/23 07:00 08/23/23 07:00 08/23/23 07:00 08/23/23 08:14 08/23/23 07:00
I&O
08/22/23 08/23/23 08/24/23
06:59 06:59 06:59
Intake Total 960 / 960
Balance 960 / 960
[2023-08-23 19:52] LABS: Osmolality Serum 290 mOsm/kg (275-300)
[2023-08-23] MEDS: ROXICODONE 5 MG PO (20:53)
[2023-08-23 23:10] VITALS: BP 112/65
[2023-08-24 07:00] VITALS: BP 137/75
--- NOTE | 2023-08-24 07:13 | W.PN.HOSP.TC ---
Addendum entered and electronically signed by Triston Sinclair MD 08/24/23 15:21:
Yes, hemarthrosis is related to/associated with/exacerbated by Eliquis use.
Original Note:
Today's Communication/Plan
-
Discharge today
Assessment / Plan
Assessment / Plan
Physical Exam
General: Not in acute distress
HEENT: Moist mucous membranes
Respiratory: Clear to Auscultation Bilaterally
Cardiac: S1/S2 and Regular Rhythm
GI: Soft, Non Tender, Non Distended and Normal Bowel Sounds
Musculoskeletal: No Cyanosis and Other (Right knee wrapped in NOAH compression wrap with minimal tenderness to palpation - IMPROVED SIGNS/SYMPTOMS PER PATIENT -- but still with restricted right knee flexion)
Neuro: AAO x [address] Lower Ext W/o Iv Cont Rt, as per radiologist's impression:
'Small to moderate suprapatellar joint effusion with high attenuation suggesting blood products/hemarthrosis. No obvious fluid fluid levels.
No acute fractures or dislocation.
Mild to moderate tricompartment osteoarthritis with joint space narrowing, subchondral sclerosis and marginal osteophytes, most prominent in the medial tibiofemoral compartment.
Evaluation of additional soft tissue structures such as tendons and ligaments is limited by CT. Grossly, no abnormalities are seen.'
CT Abd Aorta Angio W/ Run Off, as per radiologist's impression:
'1. Moderate hemarthrosis of the right knee.
2. Small focus of enhancement in the right suprapatellar recess measuring 4 mm. Nonspecific but no change in appearance between the arterial and delayed phase imaging sequences, which would typically be seen with active bleeding. Overall evaluation
somewhat limited in the absence of a noncontrast sequence, but this focus was not clearly present on the noncontrast CT of the right knee from 08/22/2023.
3. Patent bilateral three-vessel runoff.'
MRI Right Knee Report, as per radiologist's impression:
'Hemarthrosis with blood products of various ages and stages of evolution, including acute/subacute hemorrhage as well as more subacute to chronic findings, such as small loculated hematomas.
While there are multiple etiologies for hemarthrosis, the cause for intra-articular hemorrhage in this patient is uncertain. No occult fracture. Pigmented villonodular synovitis may be considered, though no other definite or obvious synovial
hemosiderin deposition is identified. There are no erosions. Other possible considerations may include a bleeding disorder, such as hemophilia or vitamin K deficiency. Anticoagulation therapy. Autoimmune disease. Trauma. No findings to suggest
synovial hemangioma formation.
Moderate to large amount of edema associated with the distal fascial planes of the vastus medialis muscle and the vastus intermedius muscle.
Mild edema within the deep subcutaneous tissues medial and lateral to the patella.
Probable linear intrasubstance degenerative signal alteration involving the body of the medial meniscus, without definitive defect to indicate a tear.
Incidental subtle free edge tear involving the posterior horn of the lateral meniscus.
Mild arthritis, most pronounced involving the patellofemoral joint.'

Assessment/Plan
Patient is a 73 y/o female with past medical history significant for HTN, A-Fib and GERD who presented to the ED complaining of right knee pain and swelling x 2 days.
Right Knee Effusion/Right Knee Hemarthrosis
Right Knee Pain secondary to the above
History of Autoimmune Hemolytic Anemia (AIHA)
Carrier for hemochromatosis
- Improved
- Continue supportive care with cold application, elevation, pain control.
- Ortho evaluation for additional work - up / recommendations: approximately 10 cc blood aspirated from knee on August 22, 2023 morning
- Okay to resume Eliquis as per Dr. Guardado (orthopedics) -- continue Eliquis
- Dr. Guardado (orthopedics) can see patient in the office in the next week or two and can consider a steroid injection if things haven�t calmed down with regards to patient's
knee
- CT findings noted with no fracture
- Check CTA runoff to check for any extravasation of blood - I discussed with vascular surgery resolute professional, if the CTA is negative, there's nothing much for vascular surgery to add
- vascular can look at CTA when complete
- MRI of the right knee without contrast ordered -- and results are above
- Discussed on 08/23/23 above extensively with orthopedics and vascular surgery
- Discussed on 08/24/23 again, extensively with orthopedics, interventional radiology and vascular surgery --> nothing to do at this time, except orthopedics follow-up and
conservative management
- Hematology consulted given patient's history of AIHA, given carrier state of hemochromatosis, avoid iron supplements
Paroxysmal Atrial Fibrillation
- Stable. Currently in sinus rhythm.
- Not on any rate control medications. PPM in place.
- Continue Eliquis
Hyponatremia - RESOLVED
-Was possibly from pain
-Follow-up BMP outpatient
GERD
- Stable. Continue daily PPI.
History of Autoimmune Hemolytic Anemia
- Isolated episode / on no chronic therapy. No recent issues.
Benign Hypertension
- Stable. Continue amlodipine. Continue efforts at pain control.
DVT Prophylaxis: Eliquis
Code Status: Full
On August 23, 2023, I spoke extensively with patient and over the phone with patient's daughter.
More than 30 minutes spent in discharge including
Final examination of the patient
Summarizing hospital stay
Instructions for continuing care to all relevant caregivers
Preparation of discharge records, prescriptions, and referral forms
Total time spent (in minutes): 45
Anticipated Discharge: Today
Subjective/Interval History
-
Date of Service: August 24, 2023
Patient was seen and examined. She reported right knee pain is under control, no new pain or worsening of swelling.
Objective Data
-
Vital Signs:
Vital Signs
Temp Pulse Resp BP Pulse Ox
98.0 F 67 18 112/65 99
08/23/23 23:10 08/23/23 23:10 08/23/23 23:10 08/23/23 23:10 08/23/23 23:10
I&O
08/23/23 08/24/23 08/25/23
06:59 06:59 06:59
Intake Total 960 / 960 1380 / 1380
Balance 960 / 960 1380 / 1380
[2023-08-24] MEDS: NORVASC 5 MG PO (08:02)
[2023-08-24] MEDS: ELIQUIS 5 MG PO (08:02)
[2023-08-24] MEDS: PROTONIX 40 MG PO (08:02)
[2023-08-24] MEDS: TYLENOL 1000 MG PO ×2 (08:03→16:15)
[2023-08-24 08:32] LABS: Hematocrit 37.9 % (37.0-47.0); Hemoglobin 12.4 g/dL (12.0-16.0); Mean Corp Hgb Conc. 32.7 g/dL (33.0-37.0); Mean Corpuscular Hgb 30.7 pg (27.0-31.0); Mean Corpuscular Volume 93.8 fL (81.0-99.0); Mean Platelet Volume 10.4 fL (7.4-10.4); Platelet Count 231 10^3/uL (130-400); Red Blood Cell Count 4.04 10^6/uL (4.20-5.40); Red Cell Dist. Width 13.2 % (11.5-14.5); White Blood Cell Count 5.4 10^3/uL (4.8-10.8)
[2023-08-24 09:28] LABS: ALT (SGPT) 12 U/L (0-35); AST (SGOT) 27 U/L (14-36); Albumin 4.4 g/dl (3.5-5.0); Alkaline Phosphatase 69 U/L (38-126); Blood Urea Nitrogen 16 mg/dl (7-17); Carbon Dioxide 28 mmol/L (22-30); Chloride 100 mmol/L (98-107); Estimated Creatinine Clearance 49 ml/min; Glucose 99 mg/dl (70-99); Potassium 4.3 mmol/L (3.5-5.1); Sodium 136 mmol/L (135-145); Total Bilirubin 0.9 mg/dl (0.2-1.3); Total Protein 6.9 g/dl (6.3-8.2); eGFR > 60.00
--- NOTE | 2023-08-24 14:54 | PN.CDI ---
CDI
- -
CDI:
Physician Documentation Request
Admit Date: 08/22/23 06:06
Dear Doctor Dottie,
Clinical Indicators:
Patient admitted with right knee effusion/hemarthrosis.
Home medications include: Apixaban 5 mg tablet (Eliquis) 5 mg PO BID
08/22 Hematology PN, 'Hemarthrosis secondary to Eliquis, likely with microtrauma to the knee.'
08/23 MRI Report, 'No occult fracture...Other possible considerations may include a bleeding disorder...Anticoagulation therapy. Autoimmune disease. Trauma.'
:
Please clarify the likely relationship between the hemarthrosis and Eliquis use:
Yes, hemarthrosis is related to/associated with/exacerbated by Eliquis use.
No, hemarthrosis is not related to/associated with/exacerbated by Eliquis use but it is due to ___. (Please specify)
Unable to determine
Use of terms such as suspected, likely, concern for, or probable (associated with a specific diagnosis that is being evaluated, monitored, or treated as if it exists) are acceptable and can be coded in the inpatient setting, when documented at the
time of discharge.
Thank you,
RUPINDER Wood RN
CDI Specialist
available via tiger text
Please use your independent medical judgment in providing your response.
[2023-08-24 15:00] VITALS: BP 121/78
--- NOTE | 2023-08-24 15:20 | W.DS.TRANS ---
Addendum entered and electronically signed by Triston Sinclair MD 08/24/23 17:40:
Tramadol held.
Oxycodone sent.
Original Note:
DC Summary - Supervisor Public Health Nursing
-
Discharge Instructions:
Sleep Apnea Risk Low
Discharge Diagnosis/Procedures Right Knee Effusion/Right Knee Hemarthrosis
Right Knee Pain secondary to the above
History of Autoimmune Hemolytic Anemia (AIHA)
Carrier for hemochromatosis
Paroxysmal Atrial Fibrillation
Hyponatremia - RESOLVED
Gastroesophageal Reflux Disease
History of Autoimmune Hemolytic Anemia
Hypertension
Summaries of imaging results below, please
refer to the actual reports for full details:
CT Lower Ext W/o Iv Cont Rt, as per
radiologist's report impression:
'Small to moderate suprapatellar joint effusion
with high attenuation suggesting blood products/
hemarthrosis. No obvious fluid fluid levels.
No acute fractures or dislocation.
Mild to moderate tricompartment osteoarthritis
with joint space narrowing, subchondral
sclerosis and marginal osteophytes, most
prominent in the medial tibiofemoral compartment
.
Evaluation of additional soft tissue structures
such as tendons and ligaments is limited by CT.
Grossly, no abnormalities are seen.'
CT Abd Aorta Angio W/ Run Off, as per
radiologist's report impression:
'1. Moderate hemarthrosis of the right knee.
2. Small focus of enhancement in the right
suprapatellar recess measuring 4 mm. Nonspecific
but no change in appearance between the
arterial and delayed phase imaging sequences,
which would typically be seen with active
bleeding. Overall evaluation somewhat limited in
the absence of a noncontrast sequence, but this
focus was not clearly present on the
noncontrast CT of the right knee from 08/22/2023.
3. Patent bilateral three-vessel runoff.'
MRI Right Knee Report, as per radiologist's
report impression:
'Hemarthrosis with blood products of various
ages and stages of evolution, including acute/
subacute hemorrhage as well as more subacute to
chronic findings, such as small loculated
hematomas.
While there are multiple etiologies for
hemarthrosis, the cause for intra-articular
hemorrhage in this patient is uncertain. No
occult fracture. Pigmented villonodular
synovitis may be considered, though no other
definite or obvious synovial hemosiderin
deposition is identified. There are no erosions.
Other possible considerations may include a
bleeding disorder, such as hemophilia or vitamin
K deficiency. Anticoagulation therapy.
Autoimmune disease. Trauma. No findings to
suggest synovial hemangioma formation.
Moderate to large amount of edema associated
with the distal fascial planes of the vastus
medialis muscle and the vastus intermedius
muscle.
Mild edema within the deep subcutaneous tissues
medial and lateral to the patella.
Probable linear intrasubstance degenerative
signal alteration involving the body of the
medial meniscus, without definitive defect to
indicate a tear.
Incidental subtle free edge tear involving the
posterior horn of the lateral meniscus.
Mild arthritis, most pronounced involving the
patellofemoral joint.'
Diet As tolerated
Activity As tolerated
Blood Work CBC, BMP with PCP's office preferably by 08/25/
24
Other Services PT,OT
Instructions:
Stand-Alone Forms:
Changes to Home Medications: No
Discharge Medications:
DC Medications w/original date entered in [facility]
acetaminophen 500 mg tablet 500 mg PO Q4HPRN PRN pain ##0 09/10/21
amlodipine 5 mg tablet (Norvasc) 5 mg PO DAILY Blood pressure #90 tabs 09/22/21
apixaban 5 mg tablet (Eliquis) 5 mg PO BID #180 tabs 09/22/21
magnesium hydroxide 400 mg/5 mL oral suspension 15 ml PO QIDPRN PRN CONSTIPATION 09/22/21
pantoprazole 40 mg tablet,delayed release 40 mg PO DAILY #90 tabs 09/22/21
tramadol 50 mg tablet 50 mg PO Q6H PRN pain 08/22/23
Home Medication Changes
Pending Results: No
Total time spent discharging patient (in min): 45
--- NOTE | 2023-08-24 16:01 | CM ---
Reviewed chart, spoke with PT who stated that patient wants VN. Met with patient to obtain information for assessment. Patient stated that she lives alone in a two story home with two steps to enter by herself as her spouse just . Patient
described herself as independent with her ADLs, personal care, dressing and bathing. She ambulates without device however she just obtained a walker from PT.
Patient can do rand butter, cook, clean and do laundry. She drives and can get to her appointments and does her own shopping.
Patient has two supportive daughters, one who lives very close.
Patient denied any DME in her home.
She has had VN in the past. She has been to a SNF as well.
Patient has a prescription plan and uses [facility] on [address] for all of her medications.
Her PCP is Dr. Sagar Stokes.
Patient was agreeable to VN services and selected . Liason updated. Patient's daughter stated that patient will have her sister for a week to assist her with her needs. Patient's daughter questioned if patient should go to a SNF. Spoke with PT and
reviewed notes and indication is for home with PT as patient progressed well. Patient's daughter verbalized understanding and stated that she will be available to help patient as needed.
Plan: Case management will continue to follow and assist with discharge planning. Home with VN through .
--- NOTE | 2023-08-24 17:40 | W.DCSUMMARY ---
Discharge Summary
Discharge Data
Date of Admission: 08/22/23
Date of Discharge: 08/24/23
Total time spent discharging patient (in min): 45
-
Pending Results: No
Hospital Course
73 y/o female with past medical history significant for atrial fibrillation on Eliquis, hypertension and gastroesophageal reflux disease who presented reporting right knee pain and swelling. Patient states that she squatted/bent down to pick
something up from the floor but when she stood straight she felt a discomfort in her right knee. This seemed to get somewhat worse throughout that same day and she presented to Urgent Care for evaluation. X-rays were done at the time and she was
prescribed tramadol and advised to follow-up with Orthopedic Surgery. Upon walking out of the exam room, patient noted that her pain was worse. She had difficulty walking and had to call her daughter to pick her up from the Urgent Care. Later on,
she noted obvious swelling of the distal thigh, knee and into the lower leg. She denied any additional injury/trauma, and she could not recall any recent twisting or wrenching movement or injury; she also denied any prior history of similar
symptoms. Right knee x-ray showed, as per radiologist's report, 'moderate suprapatellar joint effusion.' Patient's Eliquis was held and orthopedics was consulted, and per orthopedics approximately 10 cc of blood was aspirated from the knee. CT
imaging of the right lower extremity showed, as per radiologist's report, 'small to moderate suprapatellar joint effusion with high attenuation suggesting blood products/hemarthrosis. No obvious fluid fluid levels. No acute fractures or dislocation.
Mild to moderate tricompartment osteoarthritis with joint space narrowing, subchondral sclerosis and marginal osteophytes, most prominent in the medial tibiofemoral compartment. Evaluation of additional soft tissue structures such as tendons and
ligaments is limited by CT. Grossly, no abnormalities are seen.' In order to rule out any potential extravasation of blood, case was discussed with vascular surgeon, and 'CT Abd Aorta Angio W/ Run Off' imaging was ordered, which showed, as per
radiologist's report, '1. Moderate hemarthrosis of the right knee.; 2. Small focus of enhancement in the right suprapatellar recess measuring 4 mm. Nonspecific but no change in appearance between the arterial and delayed phase imaging sequences,
which would typically be seen with active bleeding. Overall evaluation somewhat limited in the absence of a noncontrast sequence, but this focus was not clearly present on the noncontrast CT of the right knee from 08/22/2023; 3. Patent bilateral
three-vessel runoff.' Case was discussed with vascular surgery and interventional radiology and their opinion was no procedure or surgery needed to be done at this time. Patient would need to follow-up with orthopedics outpatient. Right knee MRI was
also done, and the findings are in the radiologist's report mentioned in the 'Discharge Diagnosis/Procedures' below. This was also discussed with orthopedics, and determination was made that nothing needs to be done while inpatient, just follow-up
with orthopedics outpatient. Please refer to the full separate reports of all imaging done in the hospitalization for all the details.
Hematology was consulted given patient's history of autoimmune hemolytic anemia (AIHA), and they mentioned that there were no findings to suggest an underlying bleeding disorder, that hemarthrosis was secondary to Eliquis, likely with microtrauma to
the knee, and that there was no evidence for recurrent AIHA; and given patient was a hemochromatosis carrier, there was no treatment needed for elevated ferritin, other than to avoid iron supplements.
Discharge Plan
-
Patient Disposition: Home (Routine Discharge)
Discharge Diagnosis/Procedures: Right Knee Effusion/Right Knee Hemarthrosis
Right Knee Pain secondary to the above
History of Autoimmune Hemolytic Anemia (AIHA)
Carrier for hemochromatosis
Paroxysmal Atrial Fibrillation
Hyponatremia - RESOLVED
Gastroesophageal Reflux Disease
History of Autoimmune Hemolytic Anemia
Hypertension
Summaries of imaging results below, please refer to the actual reports for full details:
CT Lower Ext W/o Iv Cont Rt, as per radiologist's report impression:
'Small to moderate suprapatellar joint effusion with high attenuation suggesting blood products/hemarthrosis. No obvious fluid fluid levels.
No acute fractures or dislocation.
Mild to moderate tricompartment osteoarthritis with joint space narrowing, subchondral sclerosis and marginal osteophytes, most prominent in the medial tibiofemoral compartment.
Evaluation of additional soft tissue structures such as tendons and ligaments is limited by CT. Grossly, no abnormalities are seen.'
CT Abd Aorta Angio W/ Run Off, as per radiologist's report impression:
'1. Moderate hemarthrosis of the right knee.
2. Small focus of enhancement in the right suprapatellar recess measuring 4 mm. Nonspecific but no change in appearance between the arterial and delayed phase imaging sequences, which would typically be seen with active bleeding. Overall evaluation
somewhat limited in the absence of a noncontrast sequence, but this focus was not clearly present on the noncontrast CT of the right knee from 08/22/2023.
3. Patent bilateral three-vessel runoff.'
MRI Right Knee Report, as per radiologist's report impression:
'Hemarthrosis with blood products of various ages and stages of evolution, including acute/subacute hemorrhage as well as more subacute to chronic findings, such as small loculated hematomas.
While there are multiple etiologies for hemarthrosis, the cause for intra-articular hemorrhage in this patient is uncertain. No occult fracture. Pigmented villonodular synovitis may be considered, though no other definite or obvious synovial
hemosiderin deposition is identified. There are no erosions. Other possible considerations may include a bleeding disorder, such as hemophilia or vitamin K deficiency. Anticoagulation therapy. Autoimmune disease. Trauma. No findings to suggest
synovial hemangioma formation.
Moderate to large amount of edema associated with the distal fascial planes of the vastus medialis muscle and the vastus intermedius muscle.
Mild edema within the deep subcutaneous tissues medial and lateral to the patella.
Probable linear intrasubstance degenerative signal alteration involving the body of the medial meniscus, without definitive defect to indicate a tear.
Incidental subtle free edge tear involving the posterior horn of the lateral meniscus.
Mild arthritis, most pronounced involving the patellofemoral joint.'
Condition: Fair
Diet: As tolerated
Activity: As tolerated
Blood Work: CBC, BMP with PCP's office preferably by 08/26/23
Other Services: PT and OT
Activity Restrictions/Additional Instructions:
-Your case and imaging results (including all MRI and CT imaging results) have been discussed extensively with orthopedics, vascular and interventional radiology physicians --> we all came to the conclusion there is nothing else to do while
inpatient and that you should continue the NOAH wrap, physical therapy and mobilization
-You can call Dr. Guardado's (orthopedics) office with questions/concerns -- referral has been placed on discharge -- he can consider giving you steroid injection if needed
-Continue mobilization with physical therapy and pain control.
-Avoid iron supplements due to your hemochromatosis carrier status (as per manager medical device who saw you in hospital)
Referrals:
Sagar Stokes DO [Family Provider] - in one to two days
Tigre Guardado MD [Active] - in less than 1 week (Hospital follow-up)
Prescriptions:
New
oxycodone 5 mg Tablet
5 mg PO Q8HPRN PRN (Reason: severe pain) Qty: 10 0RF
Continued
acetaminophen 500 MG tablet
500 mg PO Q4HPRN PRN (Reason: pain) Qty: 0 0RF
magnesium hydroxide 30 ML suspension
15 ml PO QIDPRN PRN (Reason: CONSTIPATION)
amlodipine [Norvasc] 5 MG tablet
5 mg PO DAILY Qty: 90 3RF
pantoprazole 40 MG tablet,delayed release (DR/EC)
40 mg PO DAILY Qty: 90 3RF
Eliquis 5 MG tablet
5 mg PO BID Qty: 180 3RF
Rx Instructions:
OK to resume tonight 09/22 at usual time
Held
tramadol 50 mg Tablet
50 mg PO Q6H PRN (Reason: pain)
Hold Instructions: Resume on 09/07/23. Do not take this medication while you are taking oxycodone.
Discharge Orders:
Discharge Patient (As Directed); Ordered 08/24/23
Ordered By: Triston Sinclair
Discharge Date and Time
Discharge Date/Time: 08/24/23 18:12
Print Language: NAURUAN
--- NOTE | 2023-08-25 11:48 | VNURNOTE ---
Home Health Liaison spoke with patient at 1115 to discuss [facility] nurse/therapy, visits, schedule and homebound status. Patient is agreeable for PT/OT and understands that visits at home will be 2-3 x per week to assess and teach mobility and safety.
No SN need at this time. Patient verbalized goal to have home health until she is able to resume outpatient PT.
[facility] contact information provided. Patient is aware that [facility] will contact her for start of care in 1-2 days after discharge from .
[facility] referral updated in [facility].
== END 2023-08-24 18:12 | disposition home health service (06) | DRG 813 ==
LOC: 3 WEST ACU 06:06
PROVIDERS: ADMITTING PHYSICIAN Hospitalist; ATTENDING PHYSICIAN Hospitalist; CONSULT PHYSICIAN Orthopaedic Surgery; EMERGENCY PHYSICIAN Emergency Medicine; FAMILY PHYSICIAN Family Medicine; OTHER PHYSICIAN Internal Medicine Hematology & Oncology
PROC: 0S9C3ZX Drainage of Right Knee Joint, Percutaneous Approach, Diagnostic (ICD-10-PCS; 2023-08-22)
DX: D68.32 Hemorrhagic disorder due to extrinsic circulating anticoagulants (principal); M25.061 Hemarthrosis, right knee; E87.1 Hypo-osmolality and hyponatremia; D59.10 Autoimmune hemolytic anemia, unspecified; M25.461 Effusion, right knee; M17.11 Unilateral primary osteoarthritis, right knee; I10 Essential (primary) hypertension; I48.0 Paroxysmal atrial fibrillation; K21.9 Gastro-esophageal reflux disease without esophagitis; Z79.01 Long term (current) use of anticoagulants
CPT/HCPCS: 73700; 73721; 75635; 80048; 80053; 82550; 83930; 85025; 85027; 85610; 85652; 85730; 96374; 96375; 96376; 97110; 97116; 97162; 97166; 99285; Q9967

== ENCOUNTER → 2023-09-14 10:01 | Outpatient (REF) | payer MEDICARE, OTHER, SELFPAY | LOC: HWRAD 10:01 | PROVIDERS: ATTENDING PHYSICIAN Nurse Practitioner Family; FAMILY PHYSICIAN Family Medicine | DX: R14.0 Abdominal distension (gaseous) (principal) | CPT/HCPCS: 76700 ==

== ENCOUNTER → 2023-09-15 12:43 | Outpatient (REF) | payer MEDICARE, OTHER, SELFPAY | LOC: HWRAD 12:43 | PROVIDERS: ATTENDING PHYSICIAN Family Medicine; REFERRING PHYSICIAN Internal Medicine Gastroenterology | DX: R14.0 Abdominal distension (gaseous) (principal) | CPT/HCPCS: 76830; 76856 ==

== ENCOUNTER → 2023-10-20 11:52 | Outpatient (REF) | payer MEDICARE, OTHER, SELFPAY | LOC: WDC 11:52 | PROVIDERS: ATTENDING PHYSICIAN Family Medicine | DX: Z12.31 Encounter for screening mammogram for malignant neoplasm of breast (principal) | CPT/HCPCS: 77063; 77067 ==

== ENCOUNTER → 2023-10-25 09:02 | Outpatient (REF) | payer MEDICARE, OTHER, SELFPAY | LOC: WDC 09:02 | PROVIDERS: ATTENDING PHYSICIAN Family Medicine | DX: R92.8 Other abnormal and inconclusive findings on diagnostic imaging of breast (principal) | CPT/HCPCS: 76642 ==

== ENCOUNTER 2023-10-28 08:55 | Outpatient (RCR) | payer MEDICARE, OTHER, SELFPAY | END 2023-10-28 23:59 | disposition home or self-care (01) | LOC: RPT 08:55 | PROVIDERS: ATTENDING PHYSICIAN Family Medicine | DX: M25.561 Pain in right knee (principal); M25.461 Effusion, right knee; R26.2 Difficulty in walking, not elsewhere classified; Z73.6 Limitation of activities due to disability | CPT/HCPCS: 97110; 97112; 97162; 97530 ==

== ENCOUNTER → 2023-11-11 10:19 | Outpatient (REF) | payer MEDICARE, OTHER, SELFPAY | LOC: RAD 10:19 | PROVIDERS: ATTENDING PHYSICIAN Family Medicine | DX: M54.2 Cervicalgia (principal); M54.12 Radiculopathy, cervical region; M54.6 Pain in thoracic spine | CPT/HCPCS: 72050; 72072 ==

== ENCOUNTER 2023-11-28 09:17 | Outpatient (RCR) | payer MEDICARE, OTHER, SELFPAY | END 2023-11-28 23:59 | disposition home or self-care (01) | LOC: RPT 09:17 | PROVIDERS: ATTENDING PHYSICIAN Family Medicine | DX: M25.561 Pain in right knee (principal); Z73.6 Limitation of activities due to disability; M54.2 Cervicalgia; M54.6 Pain in thoracic spine; M54.12 Radiculopathy, cervical region | CPT/HCPCS: 97110; 97112; 97140; 97164; 97530 ==

== ENCOUNTER 2023-12-30 08:53 | Outpatient (RCR) | payer MEDICARE, OTHER, SELFPAY | END 2023-12-30 23:59 | disposition home or self-care (01) | LOC: RPT 08:53 | PROVIDERS: ATTENDING PHYSICIAN Family Medicine | DX: M25.561 Pain in right knee (principal); M54.2 Cervicalgia; M25.461 Effusion, right knee; R26.2 Difficulty in walking, not elsewhere classified; M54.12 Radiculopathy, cervical region; M54.6 Pain in thoracic spine; Z73.6 Limitation of activities due to disability | CPT/HCPCS: 97110; 97112; 97140 ==

== ENCOUNTER 2024-01-30 13:49 | Outpatient (RCR) | payer MEDICARE, OTHER, SELFPAY | END 2024-01-30 23:59 | disposition home or self-care (01) | LOC: RPT 13:49 | PROVIDERS: ATTENDING PHYSICIAN Family Medicine | DX: M25.561 Pain in right knee (principal); M25.461 Effusion, right knee; Z73.6 Limitation of activities due to disability; R26.2 Difficulty in walking, not elsewhere classified; M54.2 Cervicalgia; M54.12 Radiculopathy, cervical region; M54.6 Pain in thoracic spine; M62.81 Muscle weakness (generalized); M17.11 Unilateral primary osteoarthritis, right knee | CPT/HCPCS: 97110; 97140; 97530 ==

== ENCOUNTER 2024-02-02 12:53 | Outpatient (RCR) | payer MEDICARE, OTHER, SELFPAY | END 2024-02-02 23:59 | disposition home or self-care (01) | LOC: RPT 12:53 | PROVIDERS: ATTENDING PHYSICIAN Family Medicine | DX: M25.561 Pain in right knee (principal); R26.2 Difficulty in walking, not elsewhere classified; M25.461 Effusion, right knee; M54.2 Cervicalgia; Z73.6 Limitation of activities due to disability; M54.12 Radiculopathy, cervical region; M54.6 Pain in thoracic spine | CPT/HCPCS: 97110; 97140 ==

== ENCOUNTER → 2024-06-25 09:58 | Outpatient (REF) | payer MEDICARE, OTHER, SELFPAY | LOC: RAD 09:58 | PROVIDERS: ATTENDING PHYSICIAN Family Medicine | DX: K21.9 Gastro-esophageal reflux disease without esophagitis (principal); R14.0 Abdominal distension (gaseous); R68.81 Early satiety | CPT/HCPCS: 74246 ==

== ENCOUNTER → 2024-07-02 08:05 | Outpatient (REF) | payer MEDICARE, OTHER, SELFPAY | LOC: RAD 08:05 | PROVIDERS: ATTENDING PHYSICIAN Family Medicine | DX: K21.9 Gastro-esophageal reflux disease without esophagitis (principal); R14.0 Abdominal distension (gaseous); R68.81 Early satiety | CPT/HCPCS: 76700 ==

== ENCOUNTER → 2024-10-26 13:03 | Outpatient (REF) | payer MEDICARE, OTHER, SELFPAY | LOC: RAD 13:03 | PROVIDERS: ATTENDING PHYSICIAN Family Medicine | DX: M54.50 Low back pain, unspecified (principal) | CPT/HCPCS: 72110 ==

== ENCOUNTER → 2024-10-30 10:44 | Outpatient (REF) | payer MEDICARE, OTHER, SELFPAY | LOC: WDC 10:44 | PROVIDERS: ATTENDING PHYSICIAN Family Medicine | DX: Z12.31 Encounter for screening mammogram for malignant neoplasm of breast (principal) | CPT/HCPCS: 77063; 77067 ==

== ENCOUNTER 2024-11-29 11:59 | Outpatient (RCR) | payer MEDICARE, OTHER, SELFPAY | END 2024-11-29 23:59 | disposition home or self-care (01) | LOC: RPT 11:59 | PROVIDERS: ATTENDING PHYSICIAN Family Medicine | DX: M54.59 Other low back pain (principal); Z73.6 Limitation of activities due to disability; M62.81 Muscle weakness (generalized) | CPT/HCPCS: 97010; 97110; 97112; 97162 ==

== ENCOUNTER 2024-12-28 12:56 | Outpatient (RCR) | payer MEDICARE, OTHER, SELFPAY | END 2024-12-28 23:59 | disposition home or self-care (01) | LOC: RPT 12:56 | PROVIDERS: ATTENDING PHYSICIAN Family Medicine | DX: M54.59 Other low back pain (principal); Z73.6 Limitation of activities due to disability; M62.81 Muscle weakness (generalized) | CPT/HCPCS: 97010; 97110; 97112; 97530 ==

== ENCOUNTER → 2025-02-07 11:52 | Outpatient (REF) | payer MEDICARE, OTHER, SELFPAY | LOC: RAD 11:52 | PROVIDERS: ATTENDING PHYSICIAN Family Medicine | DX: R10.10 Upper abdominal pain, unspecified (principal) | CPT/HCPCS: 74177; Q9967 ==

== ENCOUNTER → 2025-03-12 14:25 | Outpatient (REF) | payer MEDICARE, OTHER, SELFPAY | LOC: HWRAD 14:25 | PROVIDERS: ATTENDING PHYSICIAN Psychiatry & Neurology Neurology; FAMILY PHYSICIAN Family Medicine | DX: M53.3 Sacrococcygeal disorders, not elsewhere classified (principal) | CPT/HCPCS: 72192 ==

== ENCOUNTER → 2025-04-29 14:01 | Outpatient (REF) | payer MEDICARE, OTHER, SELFPAY | LOC: RAD 14:01 | PROVIDERS: ATTENDING PHYSICIAN Family Medicine | DX: M85.80 Other specified disorders of bone density and structure, unspecified site (principal); M85.89 Other specified disorders of bone density and structure, multiple sites | CPT/HCPCS: 77080 ==